=== PATIENT | male | born 1950 | race Caucasian/White ===

== ENCOUNTER 2016-04-13 17:47 | Observation (INO) ==
[2016-04-13] MEDS ORDERED: Ondansetron 4 MG/2 ML VIAL ONE (17:51)
[2016-04-13] MEDS ORDERED: Ondansetron 4 MG/2 ML VIAL IVP ONE (18:00)
--- NOTE | 2016-04-13 18:13 | Emergency Department Note ---
Disposition Clinical Impression: Syncope Qualifiers: Syncope type: unspecified Qualified Code(s): R55 - Syncope and collapse Intractable nausea and vomiting Qualifiers: Vomiting type: unspecified Qualified Code(s): R11.2 - Nausea with vomiting, unspecified Disposition: Still a Patient Condition: Fair Referrals: NO,PCP [Non-Partnered Physician] - Forms: ED Satisfaction Letter Time of Disposition: 18:50 General Adult HPI - General Chief complaint: ED Syncope Stated complaint: syncope episode Time Seen by Provider: 04/13/16 17:54 Source: EMS Nursing Notes Reviewed: Yes Vital Signs Reviewed: Yes - History of Present Illness HPI Narrative: Patient is a 65-year-old male who presents to [facility] ED with a chief complaint of syncopal episode. states around 4 PM this afternoon, patient started feeling dizzy, lightheaded and then passed out. States he fell to the floor. He then became very sick with nausea vomiting and diaphoresis. Denies any chest pain. States she is somewhat short of breath. states he has not been ill recently. No recent cough or cold. States he has had intermittent abdominal pain and had felt somewhat short of breath secondary to the pressure from his abdomen. Past medical history significant for COPD, diabetes, GERD. Onset (ago): Just [employer] Pain Scale: 0 Associated symptoms: Reports: nausea/vomiting, shortness of breath Treatments Prior to Arrival: none - Related Data Home Medications Medication Instructions Recorded Confirmed Albuterol Sulfate [Ventolin Hfa] 1 - 2 puff IH Q4-6H PRN 01/30/16 01/30/16 Budesonide/Formoterol 80/4.5 1 puff IH BID PRN 01/30/16 01/30/16 [Symbicort 80/4.5] Cyanocobalamin (B-12) [Vitamin B12] 1,000 mcg IM QWEEK 01/30/16 01/30/16 Fluticasone Propionate Nasal 1 spray NS DAILY PRN 01/30/16 01/30/16 [Flonase] Metformin [Glucophage] 500 mg PO HS 01/30/16 01/30/16 Pantoprazole Sodium [Protonix] 40 mg PO DAILY 01/30/16 01/30/16 Tamsulosin [Flomax] 0.4 mg PO DAILY 01/30/16 01/30/16 Previous Rx's Medication Instructions Recorded Amoxicillin/Clavulanate [Augmentin] 875 mg PO BIDWM #24 tablet 01/31/16 Allergies Allergy/AdvReac Type Severity Reaction Status Date / Time No Known Allergies Allergy Verified 01/30/16 14:46 All systems ED: reviewed and negative except as stated. Past Medical History - Past Medical History Attestation: Yes The following information was validated with the patient. Source: patient Medical history: Reports: COPD, diabetes, GERD Surgical history: Reports: orthopedic, other, other Psychiatric history: Reports: no psych history - Social History Smoking Status: Former smoker Smokeless Tobacco Status: No Alcohol use: Reports: none Drug use: Reports: none Physical Exam - General General appearance: alert, in distress, obese - Head Head exam: atraumatic, normocephalic, normal inspection - Eye Eye exam: Present: normal appearance, PERRL, EOMI - ENT ENT exam: normal exam, normal oropharynx, mucous membranes moist - Neck Neck exam: Present: normal inspection, full ROM, trachea midline - Chest Chest inspection: Present: normal inspection, symmetric chest wall rise - Respiratory Respiratory exam: Present: normal lung sounds bilaterally - Cardiovascular Cardiovascular exam: Present: regular rate, normal rhythm, normal heart sounds - Abdominal Exam Abdominal exam: Present: soft, tenderness, distention, diminished bowel sounds Abdominal tenderness: Present: mild - Extremities Exam Extremities exam: Present: normal inspection, full ROM. Absent: tenderness, pedal edema - Back Exam Back exam: Present: normal inspection, full ROM. Absent: tenderness - Neurological Exam Neurological exam: Present: alert, oriented X3, CN II-XII intact, motor sensory deficit (Unable to elevate his right leg but states this is secondary to his back pain) - Psychiatric Psychiatric exam: Present: normal affect, normal mood - Skin Skin exam: Present: warm, dry, intact, normal color Course Course Narrative: Patient seen and examined. Patient had intractable nausea with vomiting when coming in. Denies any chest pain. states he had sudden onset of lightheadedness and then passed out. He had fallen to the ground. And then was persistently nauseous vomit and diaphoretic. No prior history of heart attacks. Critical care workup initiated. Patient seemed confused when he first came in. We will do a CT head and cervical spine since he did fall. We will also do a CT chest abdomen pelvis with IV contrast to rule out any acute causes of the sudden syncope/persistent nausea with vomiting. Vital Signs Temperature 97.5 F L 04/13/16 17:49 Pulse Rate 72 04/13/16 17:49 Respiratory Rate 11 04/13/16 17:49 Blood Pressure 142/79 04/13/16 17:49 O2 Sat by Pulse Oximetry 94 L 04/13/16 17:49 Temperature 97.5 F L 04/13/16 17:49 Pulse Rate 66 04/13/16 18:55 Respiratory Rate 10 04/13/16 18:55 Blood Pressure 142/70 04/13/16 18:55 O2 Sat by Pulse Oximetry 92 L 04/13/16 18:55 Oxygen Delivery Oxygen Delivery Nasal Cannula Medical Decision Making - Medical Records Medical records reviewed: Yes I reviewed the patient's medical records. - Lab Data Lab results reviewed: Yes I reviewed the patient's lab results. Result diagrams: 04/13/16 18:08 04/13/16 18:08 - Radiology Data Radiology results reviewed: Yes I reviewed the patient's radiology results. - EKG Data EKG #1 EKG attestation: Yes I reviewed and interpreted this EKG. EKG results narrative: EKG done at 1752 shows normal sinus rhythm with a rate of [address] elevation or depression. Normal axis. EKG #2 EKG attestation: Yes I reviewed and interpreted this EKG. EKG results narrative: EKG done at 1810 shows normal sinus rhythm with a rate of [address] elevation or depression. Normal axis. Unchanged from prior EKG. Attestation Statement - Attestation Attestation: I examined this patient and my medical decision-making was reviewed with the STORAGE CENTER MANAGER/PA/Advanced Practice Nurse/Resident Physician. I agree with the documented findings, disposition and treatment plan as described except to the extent set forth below. Patient to emergency Department after syncopal episode. Witnessed by significant other. After syncope patient became pale and sweaty. Multiple episodes of vomiting per EMS. Was called in as a STEMI. On examination he is pale and diaphoretic. Actively vomiting. Moves all extremities. Answers questions appropriately. Lungs diminished but clear. He is noted to be obese. Plan. The patient is not a STEMI. He has had multiple EKGs with no ST elevation. Will check head CT and CTA chest abdomen pelvis or dissection. He seems medically stable and feeling better after fluids and multiple anti- emetics. He is signed out to shift superintendent at this time. Bedside ultrasound was limited secondary to his body habitus.
[2016-04-13] MEDS ORDERED: Metoclopramide 10 MG/2 ML VIAL IVP ONE (18:14)
[2016-04-13 18:20] LABS: Basophils # 0.1 K/mcL (0.0-0.2); Basophils % 0.6 %; Eosinophils # 0.3 K/mcL (0.0-0.6); Eosinophils % 1.9 %; Immature Granulocytes % 1.3 % (0-4); Lymphocytes # 1.9 K/mcL (0.6-4.6); Lymphocytes % 14.4 %; Mean Corpuscular HGB Conc 31.8 g/dL (31.6-35.5); Mean Corpuscular Hemoglobin 27.5 pg (28.0-33.3); Mean Corpuscular Volume 86.4 fL (83.0-100.0); Mean Platelet Volume 9.9 fL (9.4-12.4); Monocytes # 0.8 K/mcL (0.0-1.3); Neutrophils # 9.8 K/mcL (1.6-8.9); Platelet Count 244 K/mcL (140-400); Red Blood Count 5.09 M/mcL (4.19-5.50); Red Cell Distribution Width 14.4 % (11.5-14.5); Segmented Neutrophils % 75.8 %
[2016-04-13 18:33] LABS: Alanine Aminotransferase 26 Units/L (0-55); Albumin 3.3 g/dL (3.5-5.0); Albumin/Globulin Ratio 0.9 (1.1-2.2); Alkaline Phosphatase 81 Units/L (38-126); Aspartate Amino Transferase 21 Units/L (5-34); BUN/Creatinine Ratio 17 (6-26); Bilirubin,Total 0.3 mg/dL (0.2-1.2); Blood Urea Nitrogen 20 mg/dL (8-26); Calcium 8.9 mg/dL (8.6-10.8); Carbon Dioxide 26 mEq/L (19-29); Chloride 105 mEq/L (98-109); Globulin 3.6 g/dL (2.4-3.5); Glucose 147 mg/dL (70-99); INR 1.1; Osmolality,Calculated 301 (280-300); Potassium 4.3 mEq/L (3.5-4.5); Prothrombin Time 12.1 Seconds (9.4-12.1); Sodium 143 mEq/L (136-145); Total Protein 6.9 g/dL (6.0-8.3); eGFR For African Americans > 60 (> 60); eGFR For Non-African Americans > 60 (> 60)
[2016-04-13 18:36] LABS: Activated Partial Thrombo Time 28.4 Seconds (26.0-36.0)
[2016-04-13] MEDS ORDERED: 0.9 % Sodium Chloride 1,000 ML IVC ONE ×2 (18:41→18:43)
[2016-04-13] MEDS ORDERED: Ondansetron 4 MG/2 ML VIAL IV STA (19:02)
--- NOTE | 2016-04-13 19:44 | Emergency Department Note ---
Disposition Clinical Impression: Syncope Qualifiers: Syncope type: unspecified Qualified Code(s): R55 - Syncope and collapse Intractable nausea and vomiting Qualifiers: Vomiting type: unspecified Qualified Code(s): R11.2 - Nausea with vomiting, unspecified Disposition: Still a Patient Condition: Fair Syncope HPI - General Chief Complaint: ED Syncope Stated Complaint: syncope episode Time Seen by Provider: 04/13/16 17:54 Source: EMS - Related Data Home Medications Medication Instructions Recorded Confirmed Albuterol Sulfate [Ventolin Hfa] 1 - 2 puff IH Q4-6H PRN 01/30/16 04/13/16 Budesonide/Formoterol 80/4.5 1 puff IH BID 01/30/16 04/13/16 [Symbicort 80/4.5] Fluticasone Propionate Nasal 1 spray NS DAILY PRN 01/30/16 04/13/16 [Flonase] Pantoprazole Sodium [Protonix] 40 mg PO DAILY 01/30/16 04/13/16 Tamsulosin [Flomax] 0.4 mg PO DAILY 01/30/16 04/13/16 Cyanocobalamin (Vitamin B-12) 1,000 mcg PO DAILY 04/13/16 04/13/16 [Vitamin B12] Metformin HCl [Metformin HCl ER] 500 mg PO QPM 04/13/16 04/13/16 Allergies Allergy/AdvReac Type Severity Reaction Status Date / Time No Known Allergies Allergy Verified 01/30/16 14:46 Past Medical History - Past Medical History Medical history: Reports: COPD, diabetes, GERD Surgical history: Reports: orthopedic, other, other Psychiatric history: Reports: no psych history - Social History Smoking Status: Former smoker Smokeless Tobacco Status: No Alcohol use: Reports: none Drug use: Reports: none Physical Exam - General General appearance: alert, in distress, obese Course - Reevaluation(s) Reevaluation #1: Assumed care from Dr. Nails. Patient is a 65-year-old male with history of prediabetes, hypertension, and GERD that presents with an episode of syncope with exertion today when he was carrying feed his animals. He states that he has had some lightheadedness and chest heaviness when carrying feed over the last few weeks, this has been milder than today. Today, he had lightheadedness , passed out, and had emesis. Since then, he has been mildly confused and had persistent nausea. He does complain of shortness of breath is slightly increased over his baseline COPD, but denies any chest pain at this time. Workup is pending including labs and CT for dissection. On examination, the patient is in no acute distress. Heart and lungs are clear. Abdomen is soft. Anticipate admission after workup Time: 19:44 Reevaluation #2: Findings personally, the initial CT was ordered as a CT with contrast rather than a CTA. Patient will need to have the CTA performed to better evaluate for dissection and PE. Family was notified. CT was notified. Patient is receiving IV fluids and had a GFR greater than 60. Time: 20:16 Reevaluation #3: CTA negative. Patient accepted by Dr. Reis to hospitalist service. Time: 21:38 Vital Signs Temperature 97.5 F L 04/13/16 17:49 Pulse Rate 72 04/13/16 17:49 Respiratory Rate 11 04/13/16 17:49 Blood Pressure 142/79 04/13/16 17:49 O2 Sat by Pulse Oximetry 94 L 04/13/16 17:49 Temperature 98.2 F 04/14/16 04:24 Pulse Rate 108 04/14/16 04:24 Respiratory Rate 18 04/14/16 04:56 Blood Pressure 134/82 04/14/16 04:24 O2 Sat by Pulse Oximetry 91 L 04/14/16 04:56 Oxygen Delivery Oxygen Delivery Nasal Cannula Syncope - Lab Data Result diagrams: 04/14/16 03:12 04/14/16 03:12 Lab Results 04/13/16 04/13/16 04/13/16 Range/Units 18:08 18:08 18:08 WBC 12.9 H (4.3-11.1) K/mcL RBC 5.09 (4.19-5.50) M/mcL Hgb 14.0 (12.9-16.9) g/dL Hct 44.0 (37.5-50.1) % MCV 86.4 (83.0-100.0) fL MCH 27.5 L (28.0-33.3) pg MCHC 31.8 (31.6-35.5) g/dL RDW 14.4 (11.5-14.5) % Plt Count 244 (140-400) K/mcL MPV 9.9 (9.4-12.4) fL Immature Gran % 1.3 (0-4) % Seg Neutrophils % 75.8 % Lymphocytes % 14.4 % Monocytes % 6.0 % Eosinophils % 1.9 % Basophils % 0.6 % Neutrophils # 9.8 H (1.6-8.9) K/mcL Lymphocytes # 1.9 (0.6-4.6) K/mcL Monocytes # 0.8 (0.0-1.3) K/mcL Eosinophils # 0.3 (0.0-0.6) K/mcL Basophils # 0.1 (0.0-0.2) K/mcL PT 12.1 (9.4-12.1) Seconds INR 1.1 APTT 28.4 (26.0-36.0) Seconds Sodium 143 (136-145) mEq/L Potassium 4.3 (3.5-4.5) mEq/L Chloride 105 (98-109) mEq/L Carbon Dioxide 26 (19-29) mEq/L BUN 20 (8-26) mg/dL Creatinine 1.18 (0.72-1.25) mg/dL Est GFR ( Amer) > 60 (> 60) Est GFR (Non-Af Amer) > 60 (> 60) BUN/Creatinine Ratio 17 (6-26) Glucose 147 H (70-99) mg/dL POC Glucose (58-89) Calculated Osmolality 301 H (280-300) Lactic Acid (0.5-2.2) mmol/L Calcium 8.9 (8.6-10.8) mg/dL Total Bilirubin 0.3 (0.2-1.2) mg/dL AST 21 (5-34) Units/L ALT 26 (0-55) Units/L Alkaline Phosphatase 81 (38-126) Units/L Troponin I (0-0.03) ng/mL Serum Total Protein 6.9 (6.0-8.3) g/dL Albumin 3.3 L (3.5-5.0) g/dL Globulin 3.6 H (2.4-3.5) g/dL Albumin/Globulin Ratio 0.9 L (1.1-2.2) Lipase (8-78) Units/L Urine Color (Yellow) Urine Clarity (Clear) Urine pH (5.0-8.0) pH Units Ur Specific Stuart (1.010-1.025) Urine Protein (Neg-Trace) mg/dL Urine Glucose (UA) (Normal) mg/dL Urine Ketones (Negative) mg/dL Urine Blood (Negative) Urine Nitrite (Negative) Urine Bilirubin (Negative) Urine Urobilinogen (Normal) mg/dL Ur Leukocyte Esterase (Negative) Ur Culture Indicated? (NO) 04/13/16 04/13/16 04/13/16 Range/Units 18:08 18:08 18:08 WBC (4.3-11.1) K/mcL RBC (4.19-5.50) M/mcL Hgb (12.9-16.9) g/dL Hct (37.5-50.1) % MCV (83.0-100.0) fL MCH (28.0-33.3) pg MCHC (31.6-35.5) g/dL RDW (11.5-14.5) % Plt Count (140-400) K/mcL MPV (9.4-12.4) fL Immature Gran % (0-4) % Seg Neutrophils % % Lymphocytes % % Monocytes % % Eosinophils % % Basophils % % Neutrophils # (1.6-8.9) K/mcL Lymphocytes # (0.6-4.6) K/mcL Monocytes # (0.0-1.3) K/mcL Eosinophils # (0.0-0.6) K/mcL Basophils # (0.0-0.2) K/mcL PT (9.4-12.1) Seconds INR APTT (26.0-36.0) Seconds Sodium (136-145) mEq/L Potassium (3.5-4.5) mEq/L Chloride (98-109) mEq/L Carbon Dioxide (19-29) mEq/L BUN (8-26) mg/dL Creatinine (0.72-1.25) mg/dL Est GFR ( Amer) (> 60) Est GFR (Non-Af Amer) (> 60) BUN/Creatinine Ratio (6-26) Glucose (70-99) mg/dL POC Glucose (58-89) Calculated Osmolality (280-300) Lactic Acid 3.4 H (0.5-2.2) mmol/L Calcium (8.6-10.8) mg/dL Total Bilirubin (0.2-1.2) mg/dL AST (5-34) Units/L ALT (0-55) Units/L Alkaline Phosphatase (38-126) Units/L Troponin I 0.01 (0-0.03) ng/mL Serum Total Protein (6.0-8.3) g/dL Albumin (3.5-5.0) g/dL Globulin (2.4-3.5) g/dL Albumin/Globulin Ratio (1.1-2.2) Lipase 32 (8-78) Units/L Urine Color (Yellow) Urine Clarity (Clear) Urine pH (5.0-8.0) pH Units Ur Specific Stuart (1.010-1.025) Urine Protein (Neg-Trace) mg/dL Urine Glucose (UA) (Normal) mg/dL Urine Ketones (Negative) mg/dL Urine Blood (Negative) Urine Nitrite (Negative) Urine Bilirubin (Negative) Urine Urobilinogen (Normal) mg/dL Ur Leukocyte Esterase (Negative) Ur Culture Indicated? (NO) 04/13/16 04/13/16 Range/Units 20:46 21:21 WBC (4.3-11.1) K/mcL RBC (4.19-5.50) M/mcL Hgb (12.9-16.9) g/dL Hct (37.5-50.1) % MCV (83.0-100.0) fL MCH (28.0-33.3) pg MCHC (31.6-35.5) g/dL RDW (11.5-14.5) % Plt Count (140-400) K/mcL MPV (9.4-12.4) fL Immature Gran % (0-4) % Seg Neutrophils % % Lymphocytes % % Monocytes % % Eosinophils % % Basophils % % Neutrophils # (1.6-8.9) K/mcL Lymphocytes # (0.6-4.6) K/mcL Monocytes # (0.0-1.3) K/mcL Eosinophils # (0.0-0.6) K/mcL Basophils # (0.0-0.2) K/mcL PT (9.4-12.1) Seconds INR APTT (26.0-36.0) Seconds Sodium (136-145) mEq/L Potassium (3.5-4.5) mEq/L Chloride (98-109) mEq/L Carbon Dioxide (19-29) mEq/L BUN (8-26) mg/dL Creatinine (0.72-1.25) mg/dL Est GFR ( Amer) (> 60) Est GFR (Non-Af Amer) (> 60) BUN/Creatinine Ratio (6-26) Glucose (70-99) mg/dL POC Glucose 129 H (58-89) Calculated Osmolality (280-300) Lactic Acid (0.5-2.2) mmol/L Calcium (8.6-10.8) mg/dL Total Bilirubin (0.2-1.2) mg/dL AST (5-34) Units/L ALT (0-55) Units/L Alkaline Phosphatase (38-126) Units/L Troponin I (0-0.03) ng/mL Serum Total Protein (6.0-8.3) g/dL Albumin (3.5-5.0) g/dL Globulin (2.4-3.5) g/dL Albumin/Globulin Ratio (1.1-2.2) Lipase (8-78) Units/L Urine Color Yellow (Yellow) Urine Clarity Clear (Clear) Urine pH 6.5 (5.0-8.0) pH Units Ur Specific Stuart > 1.030 H (1.010-1.025) Urine Protein Negative (Neg-Trace) mg/dL Urine Glucose (UA) Normal (Normal) mg/dL Urine Ketones Negative (Negative) mg/dL Urine Blood Negative (Negative) Urine Nitrite Negative (Negative) Urine Bilirubin Negative (Negative) Urine Urobilinogen Normal (Normal) mg/dL Ur Leukocyte Esterase Negative (Negative) Ur Culture Indicated? NO (NO)
[2016-04-13] MEDS ORDERED: 0.9 % Sodium Chloride 1,000 ML IV ONE (20:12)
[2016-04-13 22:55] LABS: Bilirubin,Urine Negative (Negative); Blood,Urine Negative (Negative); Clarity,Urine Clear (Clear); Color,Urine Yellow (Yellow); Glucose,Urine (UA) Normal (Normal); Ketones,Urine Negative (Negative); Leukocyte Esterase,Urine Negative (Negative); Nitrite,Urine Negative (Negative); PH,Urine 6.5 pH Units (5.0-8.0); Protein,Urine Negative (Neg-Trace); Specific Gravity,Urine > 1.030 (1.010-1.025); Urobilinogen,Urine Normal (Normal)
--- NOTE | 2016-04-13 23:06 | Internal Med History&Physical ---
<CelioJay - Last Filed: 04/14/16 01:36> Date of Encounter: 04/14/16 Time of Encounter: 23:03 Assessment and Plan (1) Syncope Current visit: Yes Status: Acute He does have recurrent episodes of syncope, etiology unclear at this point Will workup cardiovascular etiology with echocardiogram and bilateral carotid studies, trend troponins Obtain orthostatic vital signs, B12, folate, and TSH levels to evaluate metabolic causes CT head and CTA of chest did not show any acute findings that could trigger syncopal episodes Labs did show likely intravascular volume depletion, and he has received fluid boluses in the ED; will continue 100 ml/hr over a liter Cannot rule out seizure as etiology, and he may benefit from neurology consult and EEG in future Qualifiers: Syncope type: unspecified Qualified Code(s): R55 - Syncope and collapse (2) Intractable nausea and vomiting Current visit: Yes Status: Acute He did report chronic nausea and bloating, and given history of DM, I do suspect gastroparesis as underlying cause Will support with anti-emetics and he may benefit from further workup and treatment as outpatient with Reglan Qualifiers: Vomiting type: unspecified Qualified Code(s): R11.2 - Nausea with vomiting , unspecified (3) Non-insulin dependent type 2 diabetes mellitus Current visit: Yes Status: Chronic Sugars of 147 upon admission; HbA1c of 5.9 obtained last January Will discontinue home Metformin and start on low dose SSI ACHS accuchecks (4) COPD (chronic obstructive pulmonary disease) Current visit: Yes Status: Chronic Not currently in exacerbation as patient denies any sputum production, but is on oxygen that he normally doesn't need at home Continue with supplemental oxygen and start on scheduled breathing treatments and nebulizers PRN Qualifiers: Qualified Code(s): J44.9 - Chronic obstructive pulmonary disease, unspecified (5) Morbid obesity with BMI of 45.0-49.9, adult Current visit: No Status: Chronic Counseled weight loss with lifestyle changes - diet and exercise (6) DVT prophylaxis Current visit: Yes Status: Acute Heparin 5000 units BID Internal Medicine - H&P: HPI Chief complaint: syncope Admitted From: Home Plans for Post Hospital Care: Home History of present illness: Mr. Che is a 65 year old male who presents to the emergency department after a syncopal episode prior to arrival. is at bedside and witnessed the event and is able to assist with history. 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 witnessed the event and states that he lost consciousness for about a minute and when he again consciousness was mildly confused and felt nauseous and vomited. Patient denied any blood in the vomit and states that he has chronic nausea. He also admits to shortness of breath and has a history of COPD which she has inhalers at home. He denies being on any oxygen. He does admit to previous episodes of syncope, saying that he has about 1 episode per year and has been going on for about a decade. He states they never found an etiology of his syncope. He denies any cardiac history or previous diagnosis of cancer, clots, or bleeds. Past Med Surg Social Fam HX - Past Medical History Medical history: COPD, diabetes, GERD Psychiatric history: no psych history - Past Surgical History Surgical History: orthopedic, other, other - Social History Smoking Status: Former smoker Smokeless Tobacco Status: No Alcohol use: none Drug use: none - Family History Mother Living Status: Hx Family Cardiac Disorders: No Hx Family Respiratory Disorders: No Hx Family Cancer: Yes Hx Family GI Disorders: No Hx Family Endocrine Disorder: No Hx Family Neuromuscular Disorders: No Hx Family Neurologic Disorders: No Hx Family HEENT Disorders: No Hx Family Autoimmune Disorders: No Internal Medicine - H&P: Meds Albuterol Sulfate [Ventolin Hfa] 1 - 2 puff IH Q4-6H PRN 01/30/16 [History] Budesonide/Formoterol 80/4.5 [Symbicort 80/4.5] 1 puff IH BID 01/30/16 [History ] Fluticasone Propionate Nasal [Flonase] 1 spray NS DAILY PRN 01/30/16 [History] Pantoprazole Sodium [Protonix] 40 mg PO DAILY 01/30/16 [History] Tamsulosin [Flomax] 0.4 mg PO DAILY 01/30/16 [History] Cyanocobalamin (Vitamin B-12) [Vitamin B12] 1,000 mcg PO DAILY 04/13/16 [History ] Metformin HCl [Metformin HCl ER] 500 mg PO QPM 04/13/16 [History] Allergies No Known Allergies Allergy (Verified 01/30/16 14:46) All Systems PM: A 10-system review of systems was performed and is negative for pertinent findings except as documented above in the HPI. - Constitutional Constitutional: falls, weakness, no chills, no fever(s), no night sweats - EENT Eyes: no change in vision, no discharge, no pain, no photophobia Ears: no ear discharge, no ear pain, no tinnitus Nose, mouth and throat: no dysphagia, no nasal discharge, no neck pain, no sore throat - Cardiovascular Cardiovascular ROS IM: diaphoresis, dyspnea, lightheadedness, syncope, no chest pain, no palpitations - Respiratory Respiratory: dyspnea, no cough, no wheezing, no excessive phlegm production - Gastrointestinal Gastrointestinal: nausea, vomiting, no abdominal pain, no diarrhea, no hematemesis, no hematochezia, no melena - Musculoskeletal Musculoskeletal ROS IM: no numbness, no tingling - Integumentary Integumentary IM: no rash, no unusual bruising - Neurological Neurological ROS: confusion, no convulsions, no focal weakness, no numbness, no tingling, no tremor(s) - Hematologic/Lymphatic Hematologic/Lymphatic: no easy bruising - Constitutional Vitals: Temp Pulse Resp BP Pulse Ox 97.5 F L 89 18 155/78 96 04/13/16 17:49 04/13/16 21:25 04/13/16 22:24 04/13/16 22:24 04/13/16 21:25 General appearance: Present: cooperative, pleasant, no acute distress, answers questions appropriately - Head Head exam: Present: atraumatic, normocephalic - Eye Eye exam: Present: PERRL, conjuntiva pink, sclera anicteric - Neck Neck exam general surgery: Present: supple, trachea midline. Absent: lymphadenopathy - Respiratory Respiratory exam: Present: CTAB. Absent: accessory muscle use, rales, rhonchi, wheezes - Cardiovascular Cardiovascular exam: Present: RRR, +S1, +S2. Absent: diastolic murmur, gallop, rubs, systolic murmur - GI/Abdominal GI/Abdominal exam: Present: normal bowel sounds, soft, no peritoneal signs. Absent: distended, tenderness - Extremities Exam Extremities exam: Present: warm, radial pulses palpable and symetrical. Absent : calf tenderness, cyanotic, pedal edema - Neurological Exam Neurological exam: Present: alert, no focal deficits. Absent: facial droop, speech deficit - Skin Skin exam: Present: dry, intact Internal Med - H&P Results - Labs CBC & Chem 7: 04/13/16 18:08 04/13/16 18:08 <ElisabrentRicardo ayala - Last Filed: 04/14/16 03:15> Date of Encounter: 04/14/16 All Systems PM: A 10-system review of systems was performed and is negative for pertinent findings except as documented above in the HPI. - Constitutional Vitals: Temp Pulse Resp BP Pulse Ox 97.7 F 101 16 145/81 94 L 04/14/16 00:00 04/14/16 00:00 04/14/16 00:00 04/14/16 00:00 04/14/16 00:00 General appearance: Present: cooperative, pleasant, no acute distress - Head Head exam: Present: atraumatic, normal inspection - Eye Eye exam: Present: EOMI, normal appearance, PERRL. Absent: scleral icterus Pupils: Present: normal accommodation - Neck Neck exam general surgery: Present: normal inspection. Absent: tenderness - Expanded Neck Exam Neck exam: Absent: carotid bruit - Respiratory Respiratory exam: Present: CTAB. Absent: rales, rhonchi, wheezes - Cardiovascular Cardiovascular exam: Present: RRR, +S1, +S2 - Extremities Exam Extremities exam: Present: full ROM. Absent: joint swelling - Back Exam Back exam: Present: normal inspection. Absent: CVA tenderness (L), CVA tenderness (R) - Neurological Exam Neurological exam: Present: alert, CN II-XII intact, no focal deficits Internal Med - H&P Results - Labs CBC & Chem 7: 04/13/16 18:08 04/13/16 18:08 - EKG Data -: EKG Interpreted by Myself EKG shows normal: sinus rhythm - EKG Data Prior EKG available for review: no EKG comments: 04/14/16 03:14 Sinus rhythm; no acute ST-T changes - Diagnostic Studies Chest x-ray Status: image reviewed by me (atelectasis) - Attending Attestation I discussed the pt [facility], PMH, ROS, lab data, and exam findings with Dr. Pickens. I then saw and examined patient independently as well. Pt reiterates same history to me as offered by Dr. Pickens. Pt with history of multiple prior syncopal spells. I agree with Dr. Pickens's work-up plan. Additionally, he may benefit from stress testing in the near future. I agree that his numbers imply intravascular volume depletion. Will start with work-up as detailed above and also trend troponins. If indicated, he can proceed with cardiac stress testing as outpatient to complete work-up. Other than my comments and exam findings noted above, I agree with Dr. Pickens's assessment and plan.
[2016-04-13] MEDS ORDERED: Naloxone 0.4 MG/ML INJ IVP PRN (23:36)
[2016-04-13] MEDS ORDERED: *HR* Dextrose 50 % in Water (Syg) 50 ML SYRINGE IVP PRN (23:36)
[2016-04-13] MEDS ORDERED: D5% in Water 1,000 ML IV PRN (23:36)
[2016-04-13] MEDS ORDERED: Dextrose Gel 15 GM PO PRN ×2 (23:36)
[2016-04-13] MEDS ORDERED: Fluticasone Propionate Nasal 50 MCG/SPRAY BOTTLE NS PRN (23:44)
[2016-04-13] MEDS ORDERED: Albuterol 2.5 MG/3 ML NEBULIZER IH PRN (23:48)
[2016-04-14] MEDS: Ondansetron ODT 4 MG TAB.RAPDIS SL PRN ×2 (00:03→09:06)
[2016-04-14] MEDS ORDERED: 0.9 % Sodium Chloride 1,000 ML IVC SCH (01:45)
[2016-04-14] MEDS: Acetaminophen 325 MG TABLET PO PRN ×2 (01:56→09:03)
[2016-04-14] MEDS: Ipratropium/Albuterol Neb 3 ML IH SCH ×4 (04:52→21:54)
[2016-04-14 04:54] LABS: Basophils % 0.2 %; Eosinophils % 0.2 %; Hematocrit 39.8 % (37.5-50.1); Hemoglobin 12.5 g/dL (12.9-16.9); Immature Granulocytes % 0.6 % (0-4); Lymphocytes # 1.3 K/mcL (0.6-4.6); Lymphocytes % 10.4 %; Mean Corpuscular HGB Conc 31.4 g/dL (31.6-35.5); Mean Corpuscular Hemoglobin 27.2 pg (28.0-33.3); Mean Corpuscular Volume 86.7 fL (83.0-100.0); Mean Platelet Volume 10.3 fL (9.4-12.4); Monocytes # 0.7 K/mcL (0.0-1.3); Monocytes % 5.3 %; Neutrophils # 10.5 K/mcL (1.6-8.9); Platelet Count 233 K/mcL (140-400); Red Blood Count 4.59 M/mcL (4.19-5.50); Red Cell Distribution Width 14.4 % (11.5-14.5); Segmented Neutrophils % 83.3 %
[2016-04-14 05:12] LABS: BUN/Creatinine Ratio 16 (6-26); Blood Urea Nitrogen 15 mg/dL (8-26); Calcium 8.3 mg/dL (8.6-10.8); Carbon Dioxide 25 mEq/L (19-29); Chloride 108 mEq/L (98-109); Chol/HDL Ratio 4.5 (0-4.9); Cholesterol 163 mg/dL (< 200); Glucose 131 mg/dL (70-99); HDL Cholesterol 36 mg/dL (40-59); LDL Cholesterol,Calculated 111 mg/dL (0-99); Osmolality,Calculated 295 (280-300); Potassium 4.2 mEq/L (3.5-4.5); Sodium 141 mEq/L (136-145); Triglycerides 82 mg/dL (< 150); eGFR For African Americans > 60 (> 60); eGFR For Non-African Americans > 60 (> 60)
[2016-04-14 05:21] LABS: Thyroid Stimulating Hormone 0.453 mcIU/mL (0.350-4.840)
[2016-04-14 05:37] LABS: Folate 12.4 ng/mL (7.0-31.4)
[2016-04-14] MEDS: *HR* Heparin 5,000 UNIT/ML VIAL SQ SCH ×2 (05:54→18:15)
[2016-04-14] MEDS: Budesonide/Formoterol 80/4.5 MDI IH SCH ×2 (10:12→21:55)
[2016-04-14] MEDS: Insulin LISPRO 300 UNITS/3 ML VIAL SQ SCH ×3 (11:07→19:09)
[2016-04-14] MEDS ORDERED: *HR* Promethazine 25 MG/ML VIAL ONE (11:12)
[2016-04-14] MEDS ORDERED: *HR* Promethazine 25 MG/ML VIAL IM ONE (11:14)
[2016-04-14] MEDS ORDERED: *HR* Promethazine 25 MG/ML VIAL IVP PRN (14:44)
[2016-04-14] MEDS ORDERED: GI Cocktail 40 ML EACH PO ONE (14:54)
[2016-04-14] MEDS ORDERED: Ondansetron 4 MG/2 ML VIAL IVP PRN (14:54)
[2016-04-14] MEDS ORDERED: *HR* Morphine 2 MG/ML SYRINGE IVP PRN (14:55)
--- NOTE | 2016-04-14 15:05 | Event Note ---
Date of Encounter: 04/14/16 Time of Encounter: 13:30 Patient seen and examined. On examination, patient resting in bed conversing with his family. He states the severe nausea he felt earlier today has subsided. He currently denies pain. In further conversation with the patient, patient stating that right before he passed out that he had severe abdominal pain, became diaphoretic, felt urge to defecate, then had a syncopal episode. This was witnessed in part by his and came running across the field to assist him. She states she has had syncopal episodes like this several times before but he remained confused for a longer time after this when then he usually does. and son are at the bedside and they state that typically after his syncopal episodes he would be confused for approximately one hour at this time, he was confused for hours. No indication to support a seizure although outpatient EEG may be indicated. Patient stating he felt he could have been incontinent but he was not. Extensive workup thus far has been unremarkable. Chest x-ray with bilateral atelectasis, abdominal CT unremarkable and revealing nodules. Cervical spine CT negative. Chest CT negative. Head CT negative. CTA negative for acute processes. He can follow up outpatient for pulmonary nodules. Urinalysis negative. Orthostatic vital signs unremarkable. Echocardiogram and carotid ultrasound still pending. We will obtain CTA of abdomen to rule out ischemic bowel. Patient stating he continues to have waves of severe nausea that were unabated by Zofran but were helped with Phenergan. Patient denies swelling to his lower extremity. On examination, lungs clear to auscultation bilaterally. Mild tachycardia present - sinus tach noted on telemetry. Abdomen distended but soft with hyperactive bowel sounds. Patient also stating that for the past 2 weeks, food has been "getting stuck" and he has to ambulate to get his food to go down. No history of hiatal hernias or esophageal strictures however his family states that his primary care provider had wanted him to have an EGD but insurance would not cover it- if CTA of abdomen negative- outpatient EGD would be warranted. Possible etiology of syncope unknown at this time- echo and carotids pending as well as a CTA of the abdomen. Vasovagal versus ischemic bowel versus cardiac etiology. ITS Impressions Chest X-Ray 04/13/16 17:59 IMPRESSION: Poor inspiration with basilar atelectasis greater on the left. D/ / Ozzy Muñoz MD / Ozzy Muñoz MD Interpreting Provider: Ozzy Muñoz MD Abdomen/Pelvis CT 04/13/16 18:07 IMPRESSION: Chest is limited by motion. No acute traumatic abnormality. There are scattered indeterminate noncalcified pulmonary nodules No acute traumatic solid organ injury in abdomen or pelvis. Right adrenal nodule, most commonly adenoma. D/ / Red Britton MD / Red Britton MD Interpreting Provider: Red Britton MD Cervical Spine CT 04/13/16 18:07 IMPRESSION: No acute abnormality of the cervical spine. D/ / 04/13/2016 19:51:57 Tico Mandujano MD / [facility] Interpreting Provider: Tico Mandujano MD Chest CT 04/13/16 18:07 IMPRESSION: Chest is limited by motion. No acute traumatic abnormality. There are scattered indeterminate noncalcified pulmonary nodules No acute traumatic solid organ injury in abdomen or pelvis. Right adrenal nodule, most commonly adenoma. D/ / Red Britton MD / Red Britton MD Interpreting Provider: Red Britton MD Head CT 04/13/16 18:07 IMPRESSION: No acute intracranial abnormality. D/ / Lennox Gilmore MD / Lennox Gilmore MD Interpreting Provider: Lennox Gilmore MD Chest CTA 04/13/16 20:11 IMPRESSION: Limited by motion. No definite pulmonary embolus. No intimal flap seen in aorta. Scattered bandlike opacities throughout the lungs, likely subsegmental atelectasis or scarring Scattered noncalcified pulmonary nodules. Small mediastinal nodes are seen, likely reactive RECOMMENDATIONS: Fleischner Society guidelines for follow-up and management of pulmonary nodules: Nodule size less than or equal to 4 mm In a low-risk patient, no follow-up needed. In a high-risk patient, follow-up CT at 12 months; if unchanged, no further follow-up. Nodule size equals 4-6 mm In a low-risk patient, follow-up CT at 12 months; if unchanged, no further follow-up. In a high-risk patient, initial follow-up CT at 6-12 months then at 18-24 months if no change. Nodule size equals 6-8 mm In a low-risk patient, initial follow-up CT at 6-12 months then at 18-24 months if no change. In a high-risk patient, initial follow-up CT at 3-6 months then at 9-12 months and 24 months if no change. Nodule size greater than 8 mm In low-risk and high-risk patients follow-up CT at around 3, 9, and 24 months, contrast-enhanced CT, PET, and/or biopsy. Low risk patients include individuals with minimal or absent history of smoking and other known risk factors. High risk patients include individuals with a history of smoking or other known risk factors. Radiology 2005; 237:395-400 D/ / Red Britton MD / Red Britton MD Interpreting Provider: Red Britton MD
[2016-04-14] MEDS ORDERED: Perflutren Lipid Microsphere 1.3 ML in 0.9 % Sodium Chloride 8.7 ML IVP ONE (16:15)
--- NOTE | 2016-04-14 17:14 | Electrocardiograph Report ---
[place] [id number] Test Date: 2016-04-13 Pat Name: Red Che Department: 104 Room: 3B Gender: M Mill[place]: : 1950 Requested By: Crystal Nails Order Number: [id number] Reading MD: Mayela Clemens Measurements Intervals [place] Rate: 75 P: 48 IA: 176 QRS: 64 QRSD: 110 T: 71 QT: 391 QTc: 419 Interpretive Statements SINUS RHYTHM Electronically Signed On 04-14-2016 17:12:03 EST by Mayela Clemens
[2016-04-14] MEDS: Simethicone 80 MG TAB.CHEW PO SCH ×2 (18:15→20:18)
--- NOTE | 2016-04-14 19:02 | Carotid Imaging Report ---
Carotid Duplex Patient Name:Red Che Order Number:[id number] Procedure Date:04/14/2016 Date:1950ge:65 yrs Gender:Male Lt BP:137 / 75 mmHg Rt.BP:137 / 75 mmHgHeart Rate: Location:[facility] Room #: [facility] Service Or Work Dispatcher Chief:Pilar Gudino Referring MD:Jay Pickens DO winter intern:Mckenna Rosario MD Reading MD:Zach Hadley MD , FACS Primary Indications:Syncope Risk Factors Yes/No Diabetes Smoker Previous Impressions: Findings: Bilateral carotid systems are essentially normal. Findings Carotid Duplex: Right: There is nonstenotic plaque in the right bifurcation. There is smooth heterogeneous plaque. The right eca has turbulent flow without plaque. Prior Study: No prior study available for comparison. Carotid Results Right PSV EDV Assessment Proximal CCA 79 12 Normal Mid CCA 77 17 Normal Distal CCA 78 20 Normal Bifurcation 78 20 Non Stenotic Plaque Proximal ICA 88 22 Normal Mid ICA 63 23 Normal Distal ICA 80 31 Normal ECA 166 22 Non Stenotic Plaque Vertebral Artery 44 18 Antegrade Flow Left PSV EDV Assessment Proximal CCA 90 20 Normal Mid CCA 87 18 Normal Distal CCA 82 27 Normal Bifurcation 86 21 Normal Proximal ICA 72 25 Normal Mid ICA 57 26 Normal Distal ICA 88 38 Normal ECA 125 13 Normal Vertebral Artery 52 16 Antegrade Flow Ratio's Right ICA/CCA Ratio: 1.14 ICA/CCA Values: 88/77 Left ICA/CCA Ratio: 1.01 ICA/CCA Values: 88/87 Updated by Zach Hadley MD, FACS on 04/14/2016 6:57:31 PM Zach Hadley MD electronically signed on 04/14/2016 6:58:07 PM with status of Final
[2016-04-14] MEDS: *HR* OxyCODONE/APAP 5/325 TABLET PO PRN (19:53)
[2016-04-14] MEDS ORDERED: Insulin LISPRO 300 UNITS/3 ML VIAL SQ SCH (21:00)
[2016-04-15] MEDS: Acetaminophen 325 MG TABLET PO PRN (03:20)
[2016-04-15] MEDS: *HR* OxyCODONE/APAP 5/325 TABLET PO PRN (03:25)
[2016-04-15 04:30] LABS: Basophils # 0.1 K/mcL (0.0-0.2); Basophils % 0.8 %; Eosinophils # 0.1 K/mcL (0.0-0.6); Eosinophils % 1.4 %; Hematocrit 39.6 % (37.5-50.1); Hemoglobin 12.4 g/dL (12.9-16.9); Immature Granulocytes % 0.6 % (0-4); Lymphocytes # 1.8 K/mcL (0.6-4.6); Lymphocytes % 19.6 %; Mean Corpuscular HGB Conc 31.3 g/dL (31.6-35.5); Mean Corpuscular Hemoglobin 27.3 pg (28.0-33.3); Mean Corpuscular Volume 87.2 fL (83.0-100.0); Mean Platelet Volume 9.9 fL (9.4-12.4); Monocytes # 0.8 K/mcL (0.0-1.3); Monocytes % 8.7 %; Neutrophils # 6.3 K/mcL (1.6-8.9); Platelet Count 227 K/mcL (140-400); Red Blood Count 4.54 M/mcL (4.19-5.50); Segmented Neutrophils % 68.9 %
[2016-04-15] MEDS: Ipratropium/Albuterol Neb 3 ML IH SCH ×3 (04:44→09:49)
[2016-04-15 04:46] LABS: INR 1.2
[2016-04-15 04:58] LABS: BUN/Creatinine Ratio 12 (6-26); Blood Urea Nitrogen 13 mg/dL (8-26); Calcium 8.5 mg/dL (8.6-10.8); Carbon Dioxide 27 mEq/L (19-29); Chloride 107 mEq/L (98-109); Glucose 143 mg/dL (70-99); Osmolality,Calculated 295 (280-300); Potassium 4.3 mEq/L (3.5-4.5); Sodium 141 mEq/L (136-145); eGFR For African Americans > 60 (> 60); eGFR For Non-African Americans > 60 (> 60)
[2016-04-15] MEDS: *HR* Heparin 5,000 UNIT/ML VIAL SQ SCH (06:21)
[2016-04-15] MEDS: Simethicone 80 MG TAB.CHEW PO SCH (08:31)
[2016-04-15] MEDS: Insulin LISPRO 300 UNITS/3 ML VIAL SQ SCH (08:32)
[2016-04-15] MEDS: Budesonide/Formoterol 80/4.5 MDI IH SCH (09:47)
--- NOTE | 2016-04-15 10:11 | ECHO - Doppler Report ---
Echo with Imaging Enhancement Agent Name: Red Che Date of Study: 04/14/2016 Date: 1950 Ht: 72.0 in Medical Record#: [id number] Age: 65 Wt: 343.0 lb Gender: Male BSA: 2.68 Order #: [id number] Location: [facility] Room #: 3B31 Reading Physician: Ranjeet Maza MD, [facility] Cardiovascular Or Nurse: Pilar Gudino Ordering Physician: Jay Pickens DO Primary Physician: Mckenna Rosario MD Indications: Syncope Impressions: LVEF likey normal with EF 55-60% not all segments well visualized Mild concentric left ventricular hypertrophy. Mild left ventricular diastolic dysfunction. Moderately dilated left atrium. No significant valvular dysfunction. Left Ventricular Wall Motion: Rest Echo Findings The apical inferior, basal inferior, apical anterior and basal anterior chamberlain were not visualized. All other wall segments showed normal motion. Findings: Study Quality * Technically adequate exam. Right Ventricle * Normal right ventricular structure and function. Right Atrium * Normal right atrial size. Mitral Valve * Normal mitral valve structure and function. Interatrial Septum * No evidence of PFO by color Doppler. Aorta * Normally sized aortic root. Pericardium * The pericardium appears normal. Left Ventricle * LVEF likey normal with EF 55-60%. * Mild concentric left ventricular hypertrophy. * Mild left ventricular diastolic dysfunction. Left Atrium * Moderately dilated left atrium. Aortic Valve * No aortic stenosis. * No aortic regurgitation. * Aortic valve not well visualized. Pulmonic Valve * Pulmonic valve not well visualized. * No pulmonic regurgitation. * No pulmonic stenosis. Tricuspid Valve * No tricuspid stenosis. * Trace tricuspid regurgitation. * Unable to estimate RVSP due to lack of TR jet. History Diabetes Years 40 Packs 2 Contrast: Definity 1.3 ml in 8.7 ml of saline 2 ml. Measurements: BP: 137/ 75 2D Normal Values RVIDd: 3.30 cm <2.7 cm IVSd: 1.60 cm 0.6 - 1.0 cm LVIDd: 3.90 cm 3.7 - 5.6 cm LVPWd: 1.40 cm 0.6 - 1.1 cm LVIDs: 2.30 cm 1.5 - 3.6 cm AO: 2.60 cm < 4.0 cm LA: 4.60 cm 2.0 - 4.0cm %FS: 41.00 cm >25 % LA volume: 43 Mitral Valve Peak E:.75 m/sec Peak A:.74 m/sec E/A Ratio:1 Peak E' Lat Eric:11.1 cm/s Peak E' Med Eric:7.41 cm/s E/E' Lat Ratio:6.7 E/E' Med Ratio:10.1 Tricuspid Valve TV Regurg Peak Grad: 8.00mmHg TV Regurg Peak Eric: 1.39m/sec Updated by Ranjeet Maza MD, [facility] on 04/15/2016 10:05:14 AM electronically signed on 04/15/2016 10:07:02 AM with status of Final Wall Motion [place]: 1=Normal, 2=Hypokinesis, 3=Akinesis, 4=Dyskinesis, 5=Aneurysmal, 6=Hyperkinetic, X=Not Visualized (Blank)=Missing
[2016-04-15 11:10] VITALS: BP 145/71
--- NOTE | 2016-04-15 11:40 | Discharge Summary ---
Date of Encounter: 04/15/16 Time of Encounter: 11:38 - Discharge Diagnosis (1) Syncope Priority: Primary Status: Acute Qualifiers: Syncope type: unspecified Qualified Code(s): R55 - Syncope and collapse (2) DVT prophylaxis Priority: Secondary Status: Acute (3) COPD (chronic obstructive pulmonary disease) Priority: Secondary Status: Chronic Qualifiers: COPD type: unspecified COPD Qualified Code(s): J44.9 - Chronic obstructive pulmonary disease, unspecified (4) Morbid obesity with BMI of 45.0-49.9, adult Priority: Secondary Status: Chronic - Discharge Medications Prescriptions: Oxygen 1 each .ROUTE AD #1 each Home Medications: Albuterol Sulfate [Ventolin Hfa] 1 - 2 puff IH Q4-6H PRN 01/30/16 [History] Budesonide/Formoterol 80/4.5 [Symbicort 80/4.5] 1 puff IH BID 01/30/16 [History ] Fluticasone Propionate Nasal [Flonase] 1 spray NS DAILY PRN 01/30/16 [History] Pantoprazole Sodium [Protonix] 40 mg PO DAILY 01/30/16 [History] Tamsulosin [Flomax] 0.4 mg PO DAILY 01/30/16 [History] Cyanocobalamin (Vitamin B-12) [Vitamin B12] 1,000 mcg PO DAILY 04/13/16 [History ] Metformin HCl [Metformin HCl ER] 500 mg PO QPM 04/13/16 [History] Oxygen 1 each .ROUTE AD #1 each 04/15/16 [Rx] Allergies/Adverse Reactions: Allergies No Known Allergies Allergy (Verified 01/30/16 14:46) Procedures/tests Complete & Pending: Procedures Performed prior 72 hours Category Date Time Status CT angio abdomen pelvis [CT] Routine Cat Scan 04/14/16 17:30 Completed EV carotid duplex imaging BI Routine Y 04/14/16 23:50 Completed EV echocardiogram w enhance Routine Y 04/14/16 23:49 Completed Date of admission: 04/13/16 21:58 Primary care physician: Mckenna Rosario, Discharging clinician: John Hall Anticipated date of discharge: 04/15/16 - Patient Status Disposition: Home, Self-Care Condition: Fair Functional capacity at discharge: independent ambulation Overall status at discharge: patient is progressing back to baseline - Discharge Instructions Follow Up With: Mckenna Rosario MD [Primary Care Provider] - 04/21/16 2:00 pm - Diet and Activity Activity: increase activity as tolerated Diet: low salt diet Interval History: Mr. Che is a 65 year old male who presents to the emergency department after a syncopal episode prior to arrival. is at bedside and witnessed the event and is able to assist with history. 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 witnessed the event and states that he lost consciousness for about a minute and when he again consciousness was mildly confused and felt nauseous and vomited. Patient denied any blood in the vomit and states that he has chronic nausea. He also admits to shortness of breath and has a history of COPD which she has inhalers at home. He denies being on any oxygen. He does admit to previous episodes of syncope, saying that he has about 1 episode per year and has been going on for about a decade. He states they never found an etiology of his syncope. He denies any cardiac history or previous diagnosis of cancer, clots, or bleeds. Hospital course: Mr. Che is a 65 year old male admitted for syncope. He underwent extensive workup. Carotid duplex was unremarkable, echocardiogram did not find any significant abnormalities. He had CT scan of the head which did not find any acute lesions. Additionally, he underwent chest CT and CT of the abdomen. Remarkable finding was a lung nodule. Otherwise, the patient has been complaining of a headache which has improved after the use of aspirin. Of note , the patient is morbidly obese, has COPD and is a former smoker. He snores loudly at night according to his , and wakes up daily with a headache and very fatigued. Patient likely has obstructive sleep apnea, I spoke with him and his at length, about the possibility of performing outpatient evaluation including a sleep study for further clarification of diagnosis of obstructive sleep apnea, they expressed understanding. Likely etiology of the syncopal episode likely vasovagal in origin. At this point, we will discharge the patient home, will continue with his inhalers. Patient was hypoxemic, he did qualify for home oxygen supplementation in light of his long-standing COPD. He would benefit from oxygen therapy at home. He will follow-up with his primary care physician in regards to his lung nodule on his evaluation for possible sleep apnea. The plan of care was discussed in detail with the patient and his , they both expressed understanding. - Time Spent with Patient Total time spent providing and/or coordinating discharge services: Greater than 30 minutes - Constitutional Vitals: Temp Pulse Resp BP Pulse Ox 98.0 F 90 24 145/71 95 04/15/16 11:07 04/15/16 11:07 04/15/16 11:07 04/15/16 11:07 04/15/16 11:07 General appearance: Present: cooperative, morbidly obese, pleasant, no acute distress - Head Head exam: Present: atraumatic, normocephalic - Eye Eye exam: Present: PERRL, conjuntiva pink, sclera anicteric Pupils: Present: PERRL - Neck Neck exam general surgery: Present: supple, trachea midline. Absent: lymphadenopathy - Respiratory Respiratory exam: Present: decreased breath sounds. Absent: accessory muscle use, rales, rhonchi, wheezes - Cardiovascular Cardiovascular exam: Present: RRR, +S1, +S2. Absent: diastolic murmur, gallop, rubs, systolic murmur - GI/Abdominal GI/Abdominal exam: Present: normal bowel sounds, soft, no peritoneal signs. Absent: distended, tenderness - Extremities Exam Extremities exam: Present: warm, radial pulses palpable and symetrical. Absent : calf tenderness, cyanotic, pedal edema - Neurological Exam Neurological exam: Present: CN II-XII intact, oriented X3, no focal deficits. Absent: pronater drift, facial droop, speech deficit - Skin Skin exam: Present: dry, intact
--- NOTE | 2016-04-15 11:48 | Physician Discharge Referral ---
Home Health/Hosp Referral Info Transfer to: Home Health Provider in Charge Post Discharge: PCP - Diagnosis (1) Syncope Status: Acute (2) DVT prophylaxis Status: Acute (3) COPD (chronic obstructive pulmonary disease) Status: Chronic (4) Morbid obesity with BMI of 45.0-49.9, adult Status: Chronic - Respiratory Orders Oxygen / L per min (3) Smoking Cessation: Smoking cessation has been advised. For more information, call the [employer] Quit Line at [phone]-NOW. - Diet/Nutrition Diet/Nutrition Orders: Cardiac - Transfer Medications Prescriptions: Oxygen 1 each .ROUTE AD #1 each Home Medications: Albuterol Sulfate [Ventolin Hfa] 1 - 2 puff IH Q4-6H PRN 01/30/16 [History] Budesonide/Formoterol 80/4.5 [Symbicort 80/4.5] 1 puff IH BID 01/30/16 [History ] Fluticasone Propionate Nasal [Flonase] 1 spray NS DAILY PRN 01/30/16 [History] Pantoprazole Sodium [Protonix] 40 mg PO DAILY 01/30/16 [History] Tamsulosin [Flomax] 0.4 mg PO DAILY 01/30/16 [History] Cyanocobalamin (Vitamin B-12) [Vitamin B12] 1,000 mcg PO DAILY 04/13/16 [History ] Metformin HCl [Metformin HCl ER] 500 mg PO QPM 04/13/16 [History] Oxygen 1 each .ROUTE AD #1 each 04/15/16 [Rx] Allergies/Adverse Reactions: Allergies No Known Allergies Allergy (Verified 01/30/16 14:46) Certification: Further, I certify that my clinical findings support that this patient is homebound (i.e. absences from home require considerable and taxing effort and are for medical reasons or [facility]ish services or infrequently or short duration when for other reasons) because: Homebound Reason: Leaving home requires considerable and taxing effort due to condition, Severity of cardiac or pulmonary status limits activity tolerance Attestation: My signature below is to certify that this patient is under my care and that I, or nurse practitioner, or a physician's carpenter assistant working with me, has a face-to -face encounter with this patient.
== END 2016-04-15 15:10 | disposition home or self-care (01) ==
LOC: 3BNU 17:47 → EMEROO 17:47 → SUATTDRO 21:58 → 3BNU 22:25
PROVIDERS: ADMIT Nurse Practitioner Family; ATTEND Internal Medicine